=== PATIENT | male | born 1975 | race Hispanic/Latino ===

== ENCOUNTER 2024-02-16 14:59 | Outpatient (RCR) | payer OTHER ==
[2024-02-28] MEDS ORDERED: FISH OIL 1,0001 EAC7 PO (11:36)
[2024-02-28] MEDS ORDERED: VIT D3 PO (11:36)
[2024-02-28] MEDS ORDERED: MAGNESIUM OXID400 MG PO (11:36)
[2024-02-28] MEDS ORDERED: ZINC PO (11:36)
[2024-02-28] MEDS ORDERED: CELEBREX100 MG PO (11:36)
[2024-02-28] MEDS ORDERED: VIT C PO (11:37)
[2024-02-28] MEDS ORDERED: B COMPLEX1 EACH PO (11:37)
[2024-02-28] MEDS ORDERED: MULTI-VITAMIN1 EACH PO (11:37)
[2024-03-05] MEDS ORDERED: ASPIRIN81 MG PO (17:01)
== END 2024-02-25 ==
LOC: PT 14:59
PROVIDERS: ATTEND Physician Assistant
DX: Z47.89 Encounter for other orthopedic aftercare (principal); Z96.652 Presence of left artificial knee joint

== ENCOUNTER 2024-03-23 14:38 | Outpatient (RCR) | payer OTHER ==
[~2024-03-23 14:38] MED LIST: ASPIRIN81 MG PO; B COMPLEX1 EACH PO; CELEBREX100 MG PO; FISH OIL 1,0001 EAC7 PO; MAGNESIUM OXID400 MG PO; MULTI-VITAMIN1 EACH PO; VIT C PO; VIT D3 PO; ZINC PO
== END 2024-03-26 ==
LOC: PT 14:38
PROVIDERS: ATTEND Physician Assistant
DX: Z47.89 Encounter for other orthopedic aftercare (principal); Z96.652 Presence of left artificial knee joint

== ENCOUNTER 2024-04-25 14:49 | Outpatient (RCR) | payer OTHER | END 2024-04-26 | LOC: PT 14:49 | PROVIDERS: ATTEND Physician Assistant | DX: Z47.1 Aftercare following joint replacement surgery (principal); Z96.652 Presence of left artificial knee joint ==

== ENCOUNTER 2024-05-22 13:00 | Outpatient (RCR) | payer OTHER | END 2024-05-26 | LOC: PT 13:00 | PROVIDERS: ATTEND Physician Assistant | DX: Z47.1 Aftercare following joint replacement surgery (principal); Z96.652 Presence of left artificial knee joint ==

== ENCOUNTER 2024-06-01 14:00 | Outpatient (RCR) | payer OTHER ==
[2024-06-07] MEDS ORDERED: GABAPENTIN300 MG PO (10:38)
[2024-06-07] MEDS ORDERED: MOTRIN200 MG PO (10:38)
[2024-06-07] MEDS ORDERED: AMOXICILLIN500 MG PO (10:38)
[2024-06-11] MEDS ORDERED: TYLENOL325 MG PO (11:17)
[2024-06-11] MEDS ORDERED: MOTRIN200 MG PO (17:14)
== END 2024-06-26 ==
LOC: PT 14:00
PROVIDERS: ATTEND Physician Assistant
DX: Z47.1 Aftercare following joint replacement surgery (principal); Z96.651 Presence of right artificial knee joint

== ENCOUNTER → 2024-09-08 | Day surgery (SDC) | payer OTHER ==
[~2024-09-08] MED LIST changes: +AMOXICILLIN500 MG PO; +FAMOTIDINE20 MG PO; +GABAPENTIN300 MG PO; +LIDOCAINE HCL 2% LOCAL INJ 5 ML SDV VIAL INJ ONE; +MIDAZOLAM HCL 2 MG/2 ML VIAL ONE; +MOTRIN200 MG PO; +PROPOFOL IV EMULSION 10 MG/ML 20 ML VIAL ONE; +TIZANIDINE HCL4 MG PO; +TYLENOL325 MG PO
[2024-09-08] MEDS: LACTATED RINGER'S 1,000 ML ONE (09:13)
[2024-09-08 11:05] VITALS: BP 116/72; PULSE 56; RESP 16; O2SAT 99
== END | disposition home or self-care (01) ==
LOC: OR 08:44
PROVIDERS: ATTEND Internal Medicine Gastroenterology
DX: Z12.11 Encounter for screening for malignant neoplasm of colon (principal); K57.30 Diverticulosis of large intestine without perforation or abscess without bleeding; K59.00 Constipation, unspecified; K64.8 Other hemorrhoids; Z90.49 Acquired absence of other specified parts of digestive tract; Z87.19 Personal history of other diseases of the digestive system; K21.9 Gastro-esophageal reflux disease without esophagitis; E66.9 Obesity, unspecified; M06.9 Rheumatoid arthritis, unspecified; R03.0 Elevated blood-pressure reading, without diagnosis of hypertension; Z01.810 Encounter for preprocedural cardiovascular examination; Z79.899 Other long term (current) drug therapy; Z68.41 Body mass index [BMI] 40.0-44.9, adult
CPT/HCPCS: 45378; 93005; J2003; J2250; J2704; J7121

== ENCOUNTER 2025-03-22 14:47 | Emergency (ER) | payer OTHER ==
[~2025-03-22 14:47] MED LIST changes: -LIDOCAINE HCL 2% LOCAL INJ 5 ML SDV VIAL INJ ONE; -MIDAZOLAM HCL 2 MG/2 ML VIAL ONE; -PROPOFOL IV EMULSION 10 MG/ML 20 ML VIAL ONE
[2025-03-22 16:42] VITALS: TEMP 98.4
[2025-03-22] MEDS: TRAMADOL HCL 50 MG TAB PO ONE (18:40)
[2025-03-22] MEDS: KETOROLAC TROMETHAMINE 30 MG/ML VIAL IM STA (18:41)
[2025-03-22 19:19] VITALS: PULSE 52; RESP 18
[2025-03-22] MEDS: DEXAMETHASONE SOD PHOS 10 MG/1 ML VIAL IM ONE (21:12)
[2025-03-22 21:20] VITALS: BP 138/79; PULSE 54; RESP 18; O2SAT 99
== END 2025-03-22 21:22 | disposition home or self-care (01) ==
LOC: ER 18:09
DX: M25.561 Pain in right knee (principal); M25.461 Effusion, right knee; M54.9 Dorsalgia, unspecified; G89.29 Other chronic pain
CPT/HCPCS: 73562; 99283; J1100; J1885